=== PATIENT | male | born 1960 | race Caucasian/White ===

== ENCOUNTER 2021-06-03 07:49 | Emergency (ER) | payer BC, OTHER ==
[2021-06-03 08:01] VITALS: BP 143/95; PULSE 77
[2021-06-03] MEDS ORDERED: Ibuprofen 600 MG Tab PO ONE (08:06)
[2021-06-03] MEDS ORDERED: predniSONE 20 MG Tab PO ONE (08:07)
[2021-06-03] MEDS ORDERED: Famotidine 20 MG Tab PO ONE (08:07)
== END 2021-06-03 09:24 | disposition home or self-care (01) ==
LOC: JD.ED 07:49
DX: M10.9 Gout, unspecified (principal)
CPT/HCPCS: 73562; 99283; A9270; J7512